=== PATIENT | female | born 1995 | race Caucasian/White ===

== ENCOUNTER 2022-05-02 21:34 | Day surgery (SDC) | payer OTHER ==
[2022-05-02 21:53] VITALS: BMI 37.5
[2022-05-02] MEDS ORDERED: hydrALAZINE 20 MG/ML VIAL SLOW IVP PRN (22:40)
== END 2022-05-03 00:35 | disposition home or self-care (01) ==
LOC: CSHLD/OP 21:34
PROVIDERS: ATTEND Student in an Organized Health Care Education/Training Program
DX: O47.1 False labor at or after 37 completed weeks of gestation (principal); Z3A.39 39 weeks gestation of pregnancy
CPT/HCPCS: 99283

== ENCOUNTER 2022-05-09 05:30 | Inpatient (IN) | payer OTHER ==
[2022-05-09] MEDS ORDERED: Bupivacaine/Epinephrine 0.25% 30 ML VIAL ONE (16:14)
[2022-05-09] MEDS ORDERED: Tranexamic Acid 1,000 MG in Sodium Chloride 0.9% 250 ML 250 ML IVPB PRN (22:16)
[2022-05-09] MEDS ORDERED: Butorphanol Tartrate 1 MG/ML VIAL SLOW IVP PRN (22:16)
[2022-05-09] MEDS ORDERED: Methylergonovine 0.2 MG/ML VIAL IM PRN (22:16)
[2022-05-09] MEDS ORDERED: Misoprostol 200 MCG TAB PR PRN (22:16)
[2022-05-09] MEDS ORDERED: NS w/ Oxytocin 30 units 500 ML IV SCH ×2 (22:16)
[2022-05-09] MEDS ORDERED: Acetaminophen 500 MG TAB PO PRN (22:16)
[2022-05-09] MEDS ORDERED: Diphenoxylate HCl/Atropine Tablet PO PRN (22:16)
[2022-05-09] MEDS ORDERED: Lidocaine 1% (PF) 30 ML VIAL SC PRN (22:16)
[2022-05-09] MEDS ORDERED: Ondansetron PF 4 MG/2 ML Vial IVP PRN (22:16)
[2022-05-09] MEDS ORDERED: Promethazine HCl 25 MG/ML VIAL IM PRN (22:16)
[2022-05-09] MEDS ORDERED: hydrALAZINE 20 MG/ML VIAL SLOW IVP PRN (22:16)
[2022-05-09] MEDS ORDERED: Carboprost 250 MCG/ML AMP IM PRN (22:16)
[2022-05-09 22:40] LABS: Mean Corpuscular HGB CONC 32.4 g/dL (32.0-36.0); Mean Corpuscular Hemoglobin 27.3 pg (27.0-33.0); Mean Corpuscular Volume 84.3 fl (81.6-98.3); Mean Platelet Volume 9.9 fl (7.4-10.4); Platelet Count 244 10x3/uL (150-450); RBC Distribution Width 16.1 % (11.5-14.5); Red Blood Cell (RBC) Count 4.39 10x6/uL (3.90-5.03); White Blood Cell (WBC) Count 9.4 10x3/uL (3.5-10.5)
[2022-05-10 01:05] LABS: HBSAg Index 0.07 S/CO (0-0.99); Hep B Surf Ag Non-Reactive S/CO (NonReactive)
[2022-05-10 01:06] LABS: Syphilis Antibody Nonreactive (Nonreactive); Syphilis Antibody Index 0.04 S/CO (<1.00 Non-Reactive)
[2022-05-10] MEDS: Misoprostol 100 MCG TAB VAG SCH ×4 (02:16→23:11)
[2022-05-10 02:36] LABS: SARS-CoV-2 NAA Rapid Test Not Detected (NotDetected)
[2022-05-10] MEDS: Lactated Ringer's 1,000 ML IV SCH ×3 (06:03→23:27)
[2022-05-10 07:56] VITALS: BMI 36.7
[2022-05-10] MEDS ORDERED: Tranexamic Acid 1,000 MG/10 ML VIAL ONE (09:31)
[2022-05-10] MEDS ORDERED: Methylergonovine 0.2 MG/ML VIAL ONE (09:31)
[2022-05-10] MEDS ORDERED: Carboprost 250 MCG/ML AMP ONE (09:31)
[2022-05-10] MEDS ORDERED: Misoprostol 200 MCG TAB ONE (09:32)
[2022-05-10] MEDS ORDERED: Fentanyl 2 mcg/Bup 0.1% Cadd 100 ML ONE (10:57)
[2022-05-10] MEDS ORDERED: Bicitra 30 ML UDCUP PO PRN (12:09)
[2022-05-10] MEDS ORDERED: Famotidine/PF 20 mg/2ml Vial SLOW IVP PRN (12:09)
[2022-05-10] MEDS ORDERED: CEFAZOLIN 2 GM in Sodium Chloride 0.9% 100 ML IVPB SCH (12:15)
[2022-05-10] MEDS ORDERED: Azithromycin 500 MG in Sodium Chloride 0.9% 250 ML 250 ML IVPB SCH (12:15)
[2022-05-10] MEDS ORDERED: Terbutaline Sulfate 1 MG/ML VIAL ONE (13:05)
[2022-05-10] MEDS ORDERED: Promethazine HCl 25 MG/ML VIAL IM PRN (13:26)
[2022-05-10] MEDS ORDERED: Ondansetron PF 4 MG/2 ML Vial IVP PRN (13:26)
[2022-05-10] MEDS ORDERED: Promethazine HCl 25 MG SUPP PR PRN (13:26)
[2022-05-10] MEDS ORDERED: Naloxone HCl 0.4 mg/ml Vial IVP PRN ×2 (13:26)
[2022-05-10] MEDS ORDERED: Ondansetron HCl/PF 4 MG/2 ML Vial IVP PRN (13:26)
[2022-05-10] MEDS ORDERED: Moisturizing Cream (Eucerin) 113 GM JAR TOP PRN (13:26)
[2022-05-10] MEDS ORDERED: diphenhydrAMINE 50 MG/ML VIAL IVP PRN (13:26)
[2022-05-10] MEDS ORDERED: Meperidine HCl/PF 25 MG/ML VIAL SLOW IVP PRN (13:26)
[2022-05-10] MEDS ORDERED: Naloxone HCl 0.4 mg/ml Vial IV PRN (13:26)
[2022-05-10] MEDS ORDERED: Fentanyl 100 MCG/2 ML VIAL SLOW IVP PRN (13:26)
[2022-05-10] MEDS ORDERED: Communication Order-Pharmacy FS SCH (13:30)
[2022-05-10] MEDS ORDERED: Oxytocin 10 UNITS/ML VIAL ONE ×2 (13:47→14:46)
[2022-05-10] MEDS ORDERED: Metoclopramide HCl 10 MG/2 ML VIAL ONE (13:47)
[2022-05-10] MEDS ORDERED: Ondansetron PF 4 MG/2 ML Vial ONE (13:47)
[2022-05-10] MEDS ORDERED: Phenylephrine 40 MG/NS 250 ML 0 ML ONE (13:47)
[2022-05-10] MEDS ORDERED: Dexamethasone 4 mg/ml Vial ONE (13:47)
[2022-05-10] MEDS ORDERED: Ketorolac Tromethamine 30 MG/ML VIAL ONE (13:47)
[2022-05-10] MEDS ORDERED: Morphine PF 10 MG/10 ML VIAL ONE (13:51)
[2022-05-10] MEDS ORDERED: Lidocaine 2% MPF 10 ML AMP (For Epidural Use) ONE ×2 (13:52→14:44)
[2022-05-10] MEDS: Ketorolac Tromethamine 30 MG/ML VIAL IVP PRN (23:47)
[2022-05-11] MEDS: Misoprostol 100 MCG TAB VAG SCH ×3 (01:16→12:03)
[2022-05-11] MEDS: Lactated Ringer's 1,000 ML IV SCH (04:27)
[2022-05-11] MEDS: Ketorolac Tromethamine 30 MG/ML VIAL IVP PRN (08:19)
[2022-05-11] MEDS ORDERED: Misoprostol 200 MCG TAB PR PRN (09:42)
[2022-05-11] MEDS ORDERED: Methylergonovine 0.2 MG/ML VIAL IM PRN (09:42)
[2022-05-11] MEDS ORDERED: Boostrix 0.5 ML (Tdap) VIAL (>/=7 yrs of age) IM ONE (09:42)
[2022-05-11] MEDS ORDERED: hydrALAZINE 20 MG/ML VIAL SLOW IVP PRN (09:42)
[2022-05-11] MEDS ORDERED: Ondansetron PF 4 MG/2 ML Vial IVP PRN (09:42)
[2022-05-11] MEDS ORDERED: HYDROcodone/Acetaminophen 5/325 mg Tablet PO PRN (09:42)
[2022-05-11] MEDS ORDERED: Lanolin Ointment 7 GM TUBE TOP PRN (09:42)
[2022-05-11] MEDS ORDERED: diphenhydrAMINE 25 MG CAP PO PRN (09:42)
[2022-05-11] MEDS ORDERED: NS w/ Oxytocin 30 units 500 ML IV SCH (09:45)
[2022-05-11] MEDS: Simethicone Chewable 80 MG TAB PO PRN ×3 (12:07→21:20)
[2022-05-11] MEDS: HYDROcodone/Acetaminophen 5/325 mg Tablet PO PRN ×3 (12:07→21:22)
[2022-05-11] MEDS: Docusate 100 MG CAP PO SCH (21:21)
[2022-05-11] MEDS: Ibuprofen 800 MG TAB PO SCH (21:21)
[2022-05-12] MEDS: Ferrous Sulfate 325 MG TAB PO SCH ×2 (00:46→11:45)
[2022-05-12] MEDS: Simethicone Chewable 80 MG TAB PO PRN ×2 (01:32→05:40)
[2022-05-12] MEDS: HYDROcodone/Acetaminophen 5/325 mg Tablet PO PRN ×2 (01:32→05:40)
[2022-05-12 03:47] LABS: Hemoglobin 10.1 g/dL (12.0-15.5); Mean Corpuscular Hemoglobin 27.4 pg (27.0-33.0); Mean Corpuscular Volume 85.6 fl (81.6-98.3); Mean Platelet Volume 9.8 fl (7.4-10.4); Platelet Count 178 10x3/uL (150-450); RBC Distribution Width 16.4 % (11.5-14.5); Red Blood Cell (RBC) Count 3.69 10x6/uL (3.90-5.03)
[2022-05-12] MEDS: Ibuprofen 800 MG TAB PO SCH ×2 (05:38→14:10)
[2022-05-12 08:51] VITALS: BP 115/66; TEMP 98.7
[2022-05-12] MEDS ORDERED: Prenatal Vitamin 1 TAB PO SCH (09:00)
[2022-05-12] MEDS: Docusate 100 MG CAP PO SCH (11:45)
== END 2022-05-12 17:00 | disposition home or self-care (01) | DRG 788 ==
LOC: CSHLD 19:56 → CSHPP 05-10 17:20
PROVIDERS: ADMIT Student in an Organized Health Care Education/Training Program; ATTEND Student in an Organized Health Care Education/Training Program
PROC: 3E0P7VZ Introduction of Hormone into Female Reproductive, Via Natural or Artificial Opening (ICD-10-PCS; 2022-05-09)
PROC: 10907ZC Drainage of Amniotic Fluid, Therapeutic from Products of Conception, Via Natural or Artificial Opening (ICD-10-PCS; 2022-05-09)
PROC: 10D00Z1 Extraction of Products of Conception, Low, Open Approach (ICD-10-PCS; principal; 2022-05-10)
PROC: 3E0234Z Introduction of Serum, Toxoid and Vaccine into Muscle, Percutaneous Approach (ICD-10-PCS; 2022-05-10)
DX: O48.0 Post-term pregnancy (principal); Z37.0 Single live birth; Z3A.40 40 weeks gestation of pregnancy; Z20.822 Contact with and (suspected) exposure to COVID-19; O26.893 Other specified pregnancy related conditions, third trimester; O32.1XX0 Maternal care for breech presentation, not applicable or unspecified; Z67.21 Type B blood, Rh negative; Z91.018 Allergy to other foods
CPT/HCPCS: 36415; 51702; 85027; 85461; 86780; 86850; 86870; 86900; 86901; 87340; 90384; 96372; J1100; J1200; J1885; J2274; J2405; J2590; J2765; J3105; J7120; U0002